=== PATIENT | male | born 1950 | race Hispanic/Latino ===

== ENCOUNTER 2017-02-09 15:11 | Inpatient (IN) | payer MEDICARE ==
[2017-02-09 15:27] VITALS: BMI 36.1
--- NOTE | 2017-02-09 15:50 | ED PDOC ---
Arrival/HPI - General Chief Complaint: Medical Clearance Time Seen by Provider: 02/09/17 15:28 Historian: Patient - History of Present Illness Narrative History of Present Illness (Text): 02/09/17 15:49 66-year-old male with a history of diabetes and hypercholesterolemia presents today sent in by Dr. Chaudhary for evaluation. Patient states she had a syncopal episode last night and today he still isn't feeling right. Patient states he's been feeling very shaky and has been sweating a lot. Patient states he also has a cold that he is getting over. Patient states he's had nasal congestion and sore throat and a cough for the past week or so. Patient states he's been feeling more fatigued lately. He denies chest pain or shortness of breath. Denies abdominal pain. No nausea or vomiting. No other complaints Time/Duration: Other (last night) Symptom Onset: Sudden Symptom Course: Unchanged Quality: Other (no pain) Past Medical History - Provider Review Nursing Documentation Reviewed: Yes - Travel History Have you recently traveled outside [place] w/in the past 3 mons?: No - Tetanus Immunization Tetanus Immunization: Unknown - Pulmonary Hx Respiratory Disorders: Yes (sleep apnea) - Endocrine/Metabolic Hx Diabetes Mellitus Type 2: Yes - Hematological/Oncological Hx Blood Transfusions: No Hx Blood Transfusion Reaction: No - Integumentary Hx Dermatological Disorder: No - Musculoskeletal/Rheumatological Hx Arthritis: Yes Hx Herniated Disk: Yes - Gastrointestinal Hx Gastrointestinal Disorders: Yes (cholecystitis with cholecystectomy) - Genitourinary/Gynecological Hx Genitourinary Disorders: No Hx Reproductive Disorders: No - Psychiatric Hx Emotional Abuse: No Hx Physical Abuse: No Hx Substance Use: No - Anesthesia Hx Anesthesia Reactions: No Hx Malignant Hyperthermia: No - Suicidal Assessment Feels Threatened In Home Enviroment: No Family/Social History - Physician Review Nursing Documentation Reviewed: Yes Family/Social History: Unknown Family HX Smoking Status: Former Smoker Hx Alcohol Use: (was a heavy drinker stoped 3 years ago) Hx Substance Use: No Hx Substance Use Treatment: No Allergies/Home Meds Allergies/Adverse Reactions: Allergies No Known Allergies Allergy (Verified 02/09/17 15:27) Home Medications: Home Meds Medication Instructions Recorded Confirmed Glimepiride [Amaryl] 0 mg 02/09/17 metFORMIN [glucOPHAGE] 500 mg PO BID 02/09/17 Review of Systems - Review of Systems Constitutional: Fatigue. absent: Fevers Eyes: absent: Vision Changes, Photophobia, Eye Pain ENT: Sore Throat, Sinus Congestion Respiratory: Cough. absent: SOB, Wheezing Cardiovascular: Syncope. absent: Chest Pain, Palpitations Gastrointestinal: absent: Abdominal Pain, Constipation, Diarrhea, Nausea, Vomiting Genitourinary Male: absent: Dysuria Musculoskeletal: absent: Arthralgias, Back Pain, Neck Pain Skin: absent: Rash, Pruritis Neurological: Dizziness. absent: Headache Psychiatric: absent: Anxiety, Depression Physical Exam Vital Signs Reviewed: Yes Vital Signs Temp Pulse Resp BP Pulse Ox 02/09/17 19:08 69 18 143/68 97 02/09/17 17:33 75 18 145/65 97 02/09/17 16:58 79 18 148/69 97 02/09/17 15:31 98.6 F 87 18 152/74 H 97 02/09/17 15:27 98.6 F 87 18 152/74 H 97 Temperature: Afebrile Blood Pressure: Hypertensive Pulse: Regular Respiratory Rate: Normal Appearance: Positive for: Well-Appearing, Non-Toxic, Comfortable Pain Distress: None Mental Status: Positive for: Alert and Oriented X 3 - Systems Exam Head: Present: Atraumatic Pupils: Present: PERRL Extroacular Muscles: Present: EOMI Conjunctiva: Present: Normal Ears: Present: Normal, NORMAL TM Mouth: Present: Moist Mucous Membranes Neck: Present: Normal Range of Motion, Trachea Midline. No: Meningeal Signs Respiratory/Chest: Present: Clear to Auscultation, Good Air Exchange. No: Respiratory Distress, Accessory Muscle Use Cardiovascular: Present: Regular Rate and Rhythm Abdomen: No: Tenderness, Rebound, Guarding Back: Present: Normal Inspection Upper Extremity: Present: Normal ROM Lower Extremity: Present: Other (walks with walker) Neurological: Present: GCS=15, Speech Normal Skin: Present: Warm, Dry, Normal Color. No: Rashes Psychiatric: Present: Alert, Oriented x 3 Medical Decision Making ED Course and Treatment: 02/09/17 15:52 66yr old male with syncopal episode last night. Normal saline 500 mL IV bolus cbc platelets:98 cmp: glucose; 179 trop: 0.02 CPK 2910 ekg normal sinus rhythm at 73 bpm normal axis normal intervals no ST elevation Normal saline started at 200 mL per hour cxr No infiltrate effusion or cardiomegaly ct head;FINDINGS: HEMORRHAGE: No intracranial hemorrhage. BRAIN: No mass effect or edema. Mild atrophy is noted. There are moderate white matter changes noted suggestive but nonspecific for chronic microvascular ischemic disease. VENTRICLES: Unremarkable. No hydrocephalus. CALVARIUM: Unremarkable. PARANASAL SINUSES: Moderate mucosal thickening and partial opacification of the maxillary and ethmoid sinuses noted suggestive of sinusitis. MASTOID AIR CELLS: Unremarkable as visualized. No inflammatory changes. OTHER FINDINGS: None. IMPRESSION: No evidence of acute intracranial hemorrhage territorial infarct mass effect or midline shift. Mild atrophy and moderate chronic microvascular white matter ischemic disease. Moderate sinuses mucosal disease. 02/09/17 19:49 Case discussed in depth with Dr. Chaudhary. Will admit the patient observational status for syncope and rhabdomyolysis. With neuro and cardiology consult impression; syncope, rhabdomyolysis tele observation; dr. chaudhary. 02/09/17 22:21 - Lab Interpretations Lab Results: 02/09/17 16:42 02/09/17 16:42 Lab Results 02/09/17 17:00: Urine Color Yellow, Urine Appearance Clear, Urine pH 6.0, Ur Specific [place] 1.025, Urine Protein Trace H, Urine Glucose (UA) Negative, Urine Ketones Trace H, Urine Blood Negative, Urine Nitrate Negative, Urine Bilirubin Negative, Urine Urobilinogen 1.0 H, Ur Leukocyte Esterase Negative, Urine RBC Negative, Urine WBC 0 - 2, Ur Epithelial Cells 0 - 2, Urine Bacteria Large 02/09/17 16:42: WBC 5.9, RBC 4.14, Hgb 14.1, Hct 39.0 L, MCV 94.2, MCH 34.1, MCHC 36.2, RDW 13.6, Plt Count 98 L, MPV 11.0, Gran % 49.3 L, Lymph % (Auto) 28.7, George % (Auto) 13.8 H, Eos % (Auto) 7.7 H, Baso % (Auto) 0.5, Gran # 2.90, Lymph # 1.7, George # 0.8 H, Eos # 0.5, Baso # 0.03 02/09/17 16:42: Sodium 138, Potassium 4.3, Chloride 106, Carbon Dioxide 23, Anion Gap 13, BUN 14, Creatinine 0.8, Est GFR ( Amer) > 60, Est GFR (Non- Af Amer) > 60, Random Glucose 179 H, Calcium 10.1, Total Bilirubin 1.6 H, AST 124 H, ALT 53, Alkaline Phosphatase 97, Lactate Dehydrogenase 581, Total Creatine Kinase 2918 H, CK-MB (CK-2) 3.2, CK-MB (CK-2) % Cancelled, Troponin I 0.02, Total Protein 6.4, Albumin 3.5, Globulin 2.9, Albumin/Globulin Ratio 1.2 - RAD Interpretation Radiology Orders: 02/09/17 15:45 HEAD W/O CONTRAST [CT] Stat CHEST ONE VIEW [RAD] Stat - Medication Orders Current Medication Orders: Famotidine (Pepcid) 40 mg PO HS ZOHRA Sodium Chloride (Sodium Chloride 0.9%) 1,000 mls @ 200 mls/hr IV .Q5H [facility] Last Admin: 02/09/17 21:15 Dose: 200 mls/hr Insulin Human Regular (Humulin R Low) 0 units SC ACHS ZOHRA PRN Reason: Protocol Metformin HCl (Glucophage) 500 mg PO BID ZOHRA Non-Formulary Medication (Glimepiride [Amaryl]) 4 mg PO DAILY ZOHRA Discontinued Medications Sodium Chloride (Sodium Chloride 0.9%) 500 mls @ 999 mls/hr IV .Q31M STA Stop: 02/09/17 18:50 Last Admin: 02/09/17 18:37 Dose: 999 mls/hr Disposition/Present on Arrival - Present on Arrival Any Indicators Present on Arrival: No History of DVT/PE: No History of Uncontrolled Diabetes: No Urinary Catheter: No History of Decub. Ulcer: No History Surgical Site Infection Following: None - Disposition Have Diagnosis and Disposition been Completed?: Yes Diagnosis: Rhabdomyolysis, Syncope Disposition: HOSPITALIZED Disposition Time: 19:00 Patient Plan: Observation Patient Problems: Current Active Problems Problem Status Onset Rhabdomyolysis Acute Syncope Acute Condition: FAIR
--- NOTE | 2017-02-09 16:40 | CT ---
PROCEDURE: CT HEAD WITHOUT CONTRAST. HISTORY: dizziness/syncope COMPARISON: None available. TECHNIQUE: Axial computed tomography images were obtained through the head/brain without intravenous contrast. Radiation dose: Total exam DLP = 822.62 mGy-cm. This CT exam was performed using one or more of the following dose reduction techniques: Automated exposure control, adjustment of the mA and/or kV according to patient size, and/or use of iterative reconstruction technique. FINDINGS: HEMORRHAGE: No intracranial hemorrhage. BRAIN: No mass effect or edema. Mild atrophy is noted. There are moderate white matter changes noted suggestive but nonspecific for chronic microvascular ischemic disease. VENTRICLES: Unremarkable. No hydrocephalus. CALVARIUM: Unremarkable. PARANASAL SINUSES: Moderate mucosal thickening and partial opacification of the maxillary and ethmoid sinuses noted suggestive of sinusitis. MASTOID AIR CELLS: Unremarkable as visualized. No inflammatory changes. OTHER FINDINGS: None. IMPRESSION: No evidence of acute intracranial hemorrhage territorial infarct mass effect or midline shift. Mild atrophy and moderate chronic microvascular white matter ischemic disease. Moderate sinuses mucosal disease.
[2017-02-09 17:08] LABS: ADD MANUAL DIFF? NO
[2017-02-09 17:13] LABS: BASO # 0.03 K/mm3 (0.0-2.0); BASO % 0.5 % (0.0-3.0); EOS # 0.5 (0.0-0.7); EOS % 7.7 % (1.5-5.0); GRAN % 49.3 % (50.0-68.0); LYMPH # 1.7 (1.2-3.4); LYMPH % 28.7 % (22.0-35.0); MEAN CELL VOLUME 94.2 fL (80.0-105.0); MEAN CORPUSCULAR HEMOGLOBIN 34.1 pg (25.0-35.0); MEAN CORPUSCULAR HGB CONC 36.2 g/dl (31.0-37.0); MONO # 0.8 (0.1-0.6); MONO % 13.8 % (1.0-6.0); PLATELET COUNT 98 10^3/uL (120.0-450.0); RED CELL DISTRIBUTION WIDTH 13.6 % (11.5-14.5); WHITE BLOOD COUNT 5.9 10^3/ul (4.5-11.0)
[2017-02-09 17:23] LABS: ALB/GLOB RATIO 1.2 (1.1-1.8); ALKALINE PHOSPHATASE 97 U/L (38-133); ALT/SGPT 53 U/L (7-56); AST/SGOT 124 U/L (15-59); BILIRUBIN,TOTAL 1.6 mg/dL (0.2-1.3); BLOOD UREA NITROGEN 14 mg/dL (7-21); CALCIUM 10.1 mg/dL (8.4-10.5); CARBON DIOXIDE 23 mmol/L (21-33); GFR AFRICAN-AMERICAN > 60; GLUCOSE,RANDOM 179 mg/dL (70-110); POTASSIUM 4.3 mmol/L (3.6-5.0); TOTAL PROTEIN 6.4 g/dL (5.8-8.3)
[2017-02-09 17:26] LABS: CHLORIDE 106 mmol/L (98-107); SODIUM 138 mmol/L (132-148)
[2017-02-09 17:26] LABS: URINE BILIRUBIN NEGATIVE (NEGATIVE); URINE BLOOD NEGATIVE (NEGATIVE); URINE GLUCOSE (UA) NEGATIVE (NEGATIVE); URINE KETONE TRACE mg/dL (NEGATIVE); URINE LEUKOCYTE ESTERASE NEGATIVE Leu/uL (NEGATIVE); URINE PROTEIN TRACE mg/dL (<30 mg/dL)
[2017-02-09 17:31] LABS: URINE APPEARANCE CLEAR (CLEAR); URINE COLOR YELLOW (YELLOW)
[2017-02-09 17:34] LABS: TROPONIN I 0.02 ng/mL
[2017-02-09 18:11] LABS: URINE BACTERIA LARGE (NEG); URINE EPITHELIAL CELLS 0 - 2 /hpf (0-5); URINE RBC NEGATIVE /hpf (0-2); URINE WBC 0 - 2 /hpf (0-6)
[2017-02-09] MEDS ORDERED: Sodium Chloride 0.9% 500 ML IV STA (18:20)
[2017-02-09] MEDS: Sodium Chloride 0.9% 1,000 ML IV SCH (21:15)
[2017-02-10] MEDS: Sodium Chloride 0.9% 1,000 ML IV SCH ×5 (03:21→23:18)
[2017-02-10 07:47] LABS: BLOOD UREA NITROGEN 11 mg/dL (7-21); CALCIUM 8.8 mg/dL (8.4-10.5); CARBON DIOXIDE 23 mmol/L (21-33); CHLORIDE 111 mmol/L (98-107); CHOLESTEROL 133 mg/dL (130-200); GFR AFRICAN-AMERICAN > 60; GLUCOSE,RANDOM 130 mg/dL (70-110); POTASSIUM 4.2 mmol/L (3.6-5.0); SODIUM 141 mmol/L (132-148)
--- NOTE | 2017-02-10 08:23 | RAD ---
PROCEDURE: CHEST RADIOGRAPH, 1 VIEW HISTORY: dizziness/syncope COMPARISON: None available. FINDINGS: LUNGS: The lungs are well inflated and clear. PLEURA: No pneumothorax or pleural fluid seen. CARDIOVASCULAR: Normal. OSSEOUS STRUCTURES: No significant abnormalities. VISUALIZED UPPER ABDOMEN: Normal. OTHER FINDINGS: None. IMPRESSION: No active pulmonary disease.
[2017-02-10] MEDS: Insulin Reg-LOW-Coverage SC SCH ×4 (11:30→22:04)
--- NOTE | 2017-02-10 15:49 | CARD ---
APPROVED REPORT EXAM: Two-dimensional and M-mode echocardiogram with Doppler and color Doppler. INDICATION Syncope 2D DIMENSIONS Left Atrium (2D)3.8 (1.6-4.0cm)IVSd1.6 (0.7-1.1cm) LVDd5.1 (3.9-5.9cm)PWd1.5 (0.7-1.1cm) LVDs3.6 (2.5-4.0cm)FS (%) 29.5 % LVEF (%)56.0 (>50%) M-Mode DIMENSIONS Aortic Root3.70 (2.2-3.7cm)Aortic Cusp Exc.2.10 (1.5-2.0cm) Aortic Valve AoV Peak Bddthbys656.0cm/Alex Peak GR.15mmHg Mitral Valve MV E Ytcpeywr26.8cm/sMV A Xvyshiwq432.0cm/sE/A ratio0.8 TDI E/Lateral E'0.0E/Medial E'0.0 Tricuspid Valve TR Peak [id number]/sRAP [id number] Peak Gr.23mmHg [id number] LEFT VENTRICLE The left ventricle is normal size. There is moderate concentric left ventricular hypertrophy. The left ventricular function is normal. The left ventricular ejection fraction is within the normal range. There is normal LV segmental wall motion. Transmitral Doppler flow pattern is Grade I-abnormal relaxation pattern. RIGHT VENTRICLE The right ventricle is normal size. There is normal right ventricular wall thickness. The right ventricular systolic function is normal. ATRIA The left atrium size is normal. The right atrium size is normal. AORTIC VALVE The aortic valve is thickened but opens well. There is trace aortic regurgitation. MITRAL VALVE The mitral valve is mildly thickened. Mitral regurgitation is mild. TRICUSPID VALVE The tricuspid valve is normal in structure. GREAT VESSELS The aortic root is normal in size. The IVC is normal in size and collapses >50% with inspiration. PERICARDIAL EFFUSION There is no pericardial effusion. <Conclusion> The left ventricle is normal size. There is moderate concentric left ventricular hypertrophy. The left ventricular function is normal. The left ventricular ejection fraction is within the normal range. There is normal LV segmental wall motion. Transmitral Doppler flow pattern is Grade I-abnormal relaxation pattern. Mitral regurgitation is mild.
--- NOTE | 2017-02-10 17:24 | US ---
PROCEDURE: Bilateral carotid artery duplex ultrasound HISTORY: Carotid stenosis syncope PHYSICIAN(S): Navjot Aguiar MD. TECHNIQUE: Duplex sonography and color-flow Doppler were used to evaluate the carotid bifurcations and limited segments of the vertebral arteries bilaterally. The study is limited by body habitus. FINDINGS: There is mild smooth heterogeneous plaque noted at the carotid bifurcations bilaterally. The peak systolic velocity in the proximal right internal carotid artery is 65 cm/sec. This corresponds to a 20 to 39% proximal right ICA stenosis. Normal systolic velocities are noted in the proximal right external carotid artery. There is antegrade flow in the right vertebral artery. The peak systolic velocity in the proximal left internal carotid artery is 74 cm/sec. This corresponds to a 20 to 39% proximal left ICA stenosis. Normal systolic velocities are noted in the proximal left external carotid artery. There is antegrade flow in the left vertebral artery. IMPRESSION: 1. Bilateral 20-39% proximal ICA stenoses. 2. Antegrade flow in both vertebral arteries.
--- NOTE | 2017-02-10 17:42 | CON ---
DATE: 02/10/2017 CHIEF COMPLAINT: Syncope. HISTORY OF PRESENT ILLNESS: This is a 66-year-old man with history of type 2 diabetes mellitus, hype rcholesterolemia, who was sent by his primary care doctor because he had a syncopal episode and state d he was feeling very shaky ____ diaphoretic and is recently getting over a cold and nasal congestion . His CT head showed no acute intracranial abnormality. He is on diabetic medications. He has hist ory of obstructive sleep apnea. His A1c was 6.4. He underwent a carotid Doppler, his results are pe nding. Currently, he is sitting up in the chair in no acute distress, moving all extremities equally . No pronator drift seen. He has mild diabetic neuropathy changes on examination. Otherwise, no he adaches, no change in sense of vision, taste or smell at this time. He is feeling much better than juancarlos thayer. He had a low blood pressure of 104/46 today, which was low. PAST MEDICAL HISTORY: Diabetes, hypercholesterolemia, obstructive sleep apnea. REVIEW OF SYSTEMS: A 14-point review of systems negative except for the HPI. PAST SURGICAL HISTORY: History of cholecystitis and cholecystectomy. FAMILY HISTORY: Noncontributory. SOCIAL HISTORY: Was a heavy drinker, stopped 3 years ago. Former smoker. No illicit drug use at th is time. ALLERGIES: No known drug allergies. PHYSICAL EXAMINATION: VITAL SIGNS: Temperature of 98, pulse rate of 62, blood pressure 104/46, respiratory rate 19, oxygen saturation 96% via room air. GENERAL: The patient is sitting up in bed in no acute distress. HEENT: Atraumatic, normocephalic. PERRLA. Extraocular muscles intact. NECK: Supple, no JVD, no adenopathy noted. LUNGS: Clear to auscultation. No adventitious sounds. HEART: S1, S2, normal rate and rhythm. No murmurs, rubs, or gallops. ABDOMEN: Soft, nontender, nondistended. Bowel sounds are present. EXTREMITIES: No clubbing, no cyanosis. Peripheral pulses 2+ felt bilaterally. NEUROLOGIC: The patient is alert, orientated to person, place, month and year. Speech is fluent wit hout any errors. Cranial nerves II-XII intact. MOTOR EXAM: Moves all extremities equally. Toes are downgoing bilaterally. SENSORY: Decreased light touch and pinprick up to the calves bilaterally. Decreased vibration of th e toes. DTRs are 2+ throughout and 1 at the ankles. COORDINATION: Kplmzv-ow-seup intact. Gait is deferred for now. LABORATORIES: Sodium is 141, potassium 4.2, chloride of 111, carbon dioxide 23, BUN of 11, creatinin e 0.7. Random glucose of 130. A1c is 6.4. ASSESSMENT AND PLAN: This is a 66-year-old man with history of hypertension, dyslipidemia, diabetes, obstructive sleep apnea, had a syncopal episode at home and felt generally weak after. His syncopal episode is unlikely a seizure disorder. Seems like he must have had a transient vasovagal event and possible transient cerebral hypoperfusion since he is getting off a generalized cold. At this time, he is clinically stable. I instructed that: 1. He may need a sleep study as an outpatient and need to be on continuous positive airway pressure for his obstructive sleep apnea. 2. Get better control of his blood sugars. Keep his blood sugars between 140 to 180 and continue wi th his metformin and Amaryl. 3. He would benefit to be on an aspirin of 81 mg p.o. daily. 4. Carotid Doppler and if carotid Doppler is negative, followup with the baseball inspector and repairer and primary c are team. At this time, he is clinically stable from my standpoint. Will not need any further neuro testing at this time. Please reconsult if there is a change in his status. Kamaljit Espinosa MD cc: [id number] TT: 02/10/2017 17:42:14 Confirmation # [id number] Dictation # [id number]
--- NOTE | 2017-02-10 18:15 | CON ---
DATE: 02/10/2017 REASON FOR CARDIOLOGY CONSULTATION: Syncope. HISTORY OF PRESENT ILLNESS: The patient is a 66-year-old male who has a history of hypertension, roscoe betes mellitus and hyperlipidemia, presented because of a fainting spell while at home in the bedroom in a partially carpeted area. The patient did feel dizzy and fell on his left elbow. The patient a s he tried to stand up and go to the bed, he felt short of breath with diaphoresis as well as palpita tions. The patient is unaware of any history of heart attack or stroke in the past. The patient renard es by himself and event was not witnessed. SOCIAL HISTORY: The patient is a former smoker, former ETOH abuser who quit many years ago. MEDICATIONS: Amaryl 4 mg p.o. once a day, metformin 500 mg twice a day, Pepcid 40 mg p.o. at bedtime , normal saline at 200 mL an hour. REVIEW OF SYSTEMS: No nausea or vomiting. No recent diarrhea. No fever or chills and no retrostern al chest pain. The patient does report left elbow pain. PHYSICAL EXAMINATION: GENERAL: The patient is an elderly male who does not appear to be in any distress. VITAL SIGNS: Blood pressure 160/86, heart rate 72, temperature 98.5, respirations 20. HEENT: Normocephalic. NECK: No JVD. CHEST: Minimal rhonchi. HEART: S1, S2 regular. ABDOMEN: Soft. EXTREMITIES: Left elbow bruising, no edema. LABORATORY DATA: CBC: WBC 5.9, hemoglobin and hematocrit 4.1 and 39 respectively, platelet count is 98,000. SMA-7: Sodium 141, potassium 4.2, chloride 111, CO2 23, glucose 130, BUN 11, creatinine 0. 7. One set of troponin 0.02. TSH level is within normal limits. Head CT scan without contrast: No acute findings, mild atrophy and moderate chronic microvascular white matter ischemic changes, moder ate sinus mucosal disease. Chest x-ray revealed cardiomegaly with prominent bronchovascular markings . EKG revealed normal sinus rhythm. Echocardiographic study performed in 12/2014 revealed normal ej ection fraction and grade 1 abnormal relaxation pattern. ASSESSMENT: 1. Syncopal episode associated with palpitation, diaphoresis. 2. Uncontrolled diabetes mellitus. 3. Hypertension. 4. Thrombocytopenia. RECOMMENDATIONS: Continue current Amaryl, metformin and normal saline infusion. Start aspirin 81 mg once a day. Obtain an echocardiogram and carotid Doppler. The most recent carotid Doppler from 2014 revealed bilateral 20%-39% proximal internal carotid artery stenosis. Mason Raphael MD cc: [id number] TT: 02/10/2017 18:14:25 Confirmation # [id number] Dictation # [id number] jn
[2017-02-10] MEDS: Albuterol-Ipratrop 3 mg / 0.5 (3 ml) UD IH SCH (19:29)
--- NOTE | 2017-02-10 21:01 | CON ---
DATE: 02/10/2017 REFERRING PHYSICIAN: Dr. Chaudhary. REASON FOR CONSULT: Recurrent syncopal episodes, sleep apnea syndrome, noncompliant with the CPAP, c hronic obstructive lung disease. HISTORY OF PRESENT ILLNESS: This is a 66-year-old gentleman with past medical history significant fo r morbid obesity, chronic obstructive lung disease, obstructive sleep apnea syndrome, diabetes, hyper tension, noncompliant with the CPAP. Has any recurrent syncopal type episode, also had a rhinitis, c ough or sore throat. No chest pain, no nausea, no vomiting, no diarrhea. Has some leg swelling. PAST MEDICAL HISTORY: Obesity, sleep apnea syndrome, chronic lung disease, diabetes, history of alco hol abuse in the remote past. FAMILY HISTORY: No significant cardiopulmonary disease reported. ALLERGIES: None known. MEDICATIONS: He is on Amaryl 4 mg daily, Glucophage 500 mg twice a day, insulin coverage, Pepcid 40 mg daily, IV fluid normal saline 200 mL per hour was given. PHYSICAL EXAMINATION: HEENT: Moist mucous membrane. Crowded airway. Mallampati score is 4. NECK: Supple. No JVD. LUNGS: Expiratory wheezing and rhonchi. HEART: S1 and S2. ABDOMEN: Soft, nontender. No organomegaly. EXTREMITIES: There is not much edema. NEUROLOGIC: Awake, alert, follows simple commands. LABORATORY DATA: Shows hemoglobin 14.1, hematocrit 39.0, WBC 5.9, platelet is 98. Sodium 141, potas sium 4.2, chloride 111, bicarbonate 23, BUN 11, creatinine 0.7, glucose 130, calcium 8.8, cholesterol 133. TSH 2.97. Urinalysis shows WBCs 0-2. On admission, had a chest x-ray done, which shows no ac tive pulmonary disease reported. Also had a CAT scan of the head done on admission, which was unrema rkable for any changes, mild atrophy and moderate chronic microvascular white matter ischemic disease s, ____ mucosal thickening. Had echocardiogram done which shows right ventricle systolic pressure is 33, LV has a moderate concentric hypertrophy. IMPRESSION AND PLAN: Chronic obstructive lung disease, sleep apnea syndrome, cardiac diastolic dysfu nction, morbid obesity, diabetes, hypertension, thrombocytopenia, recurrent syncopal episode. I agre e with the present management. We will add IV and inhaled bronchodilator, add CPAP 7 cm while sleepi ng. Gastric prophylaxis. DVT prophylaxis. Being followed by cardiology as well last neurology. Fa ll precaution. Thank you and will follow with you. Antonietta Acevedo MD cc: [id number] TT: 02/10/2017 21:00:53 Confirmation # [id number] Dictation # [id number] jn
[2017-02-10] MEDS: MethylPREDNISolone 40 mg Vial IVP SCH (21:21)
--- NOTE | 2017-02-10 23:26 | CARD ---
APPROVED REPORT EKG Measurement Heart [id number] <Conclusion> Normal sinus rhythm Normal ECG
[2017-02-11] MEDS: Albuterol-Ipratrop 3 mg / 0.5 (3 ml) UD IH SCH ×2 (01:06→07:53)
[2017-02-11 01:10] VITALS: O2SAT 98
[2017-02-11] MEDS: Sodium Chloride 0.9% 1,000 ML IV SCH ×2 (05:42→09:10)
[2017-02-11 07:08] LABS: MEAN CELL VOLUME 93.4 fL (80.0-105.0); MEAN CORPUSCULAR HEMOGLOBIN 33.4 pg (25.0-35.0); MEAN CORPUSCULAR HGB CONC 35.8 g/dl (31.0-37.0); MEAN PLATELET VOLUME 10.6 fl (7.0-11.0); RED CELL DISTRIBUTION WIDTH 13.6 % (11.5-14.5); WHITE BLOOD COUNT 4.4 10^3/ul (4.5-11.0)
[2017-02-11 07:19] LABS: ALB/GLOB RATIO 1.1 (1.1-1.8); ALKALINE PHOSPHATASE 101 U/L (38-133); ALT/SGPT 54 U/L (7-56); AST/SGOT 128 U/L (15-59); BILIRUBIN,TOTAL 1.6 mg/dL (0.2-1.3); BLOOD UREA NITROGEN 13 mg/dL (7-21); CALCIUM 8.6 mg/dL (8.4-10.5); CARBON DIOXIDE 18 mmol/L (21-33); CHLORIDE 110 mmol/L (98-107); GFR AFRICAN-AMERICAN > 60; GLUCOSE,RANDOM 237 mg/dL (70-110); POTASSIUM 4.5 mmol/L (3.6-5.0); SODIUM 138 mmol/L (132-148); TOTAL PROTEIN 6.3 g/dL (5.8-8.3)
[2017-02-11] MEDS: Insulin Reg-LOW-Coverage SC SCH ×2 (07:54→13:13)
[2017-02-11] MEDS: MethylPREDNISolone 40 mg Vial IVP SCH (09:15)
--- NOTE | 2017-02-11 09:26 | HP ---
CONTINUATION LABORATORY DATA: White blood cells 5.9, hemoglobin 14.1, hematocrit 39.0, platelets 98. Sodium 141, potassium 4.2, BUN 11, creatinine 0.7, glucose 151. ASSESSMENT AND PLAN: The patient is a 66-year-old male with uncontrolled diabetes mellitus, non-insulin requiring; proteinuria, ketonuria, came with syncopal attack, seen by Dr. Acevedo, has history of obesity, sleep apnea syndrome, chronic lung disease, history of alcohol abuse in the remote past, has cirrhosis of the liver, cardiac diastolic dysfunction, morbid obesity, hypertension, thrombocytopenia, history of recurrent syncopal attack. Dr. Acevedo added inhaled bronchodilators. Gastric prophylaxis, DVT prophylaxis. I reviewed Dr. Acevedo's notes. I reviewed Dr. Kamaljit Espinosa's notes also. Elbow x-ray is done; results are pending. According to neurologist, the patient's syncopal disorder does not look like seizure disorder; seems likely he must have transient vasovagal, even at times possibly transient cerebral hypoperfusion since he is getting and generalized cold. The patient may need sleep study as outpatient. To continue having positive airway pressure for his obstructive sleep apnea. Try to control blood sugar. Dr. Espinosa added aspirin. Carotid Doppler is negative. According to Dr. Espinosa, no further neurological testing. Seen by autographer/Dr. Mason Raphael also. History of palpitation, diaphoresis. Continue Amaryl, metformin, and normal saline infusion as per autographer. Obtain echocardiography. Carotid Doppler of the neck revealed bilateral 20-39% proximal internal carotid artery stenosis. Out of bed, physical therapy. GI and DVT prophylaxis. Will follow up. Tesha Chaudhary MD cc: [id number] TT: 02/11/2017 09:25:51 aubree PADILLA
[2017-02-11] MEDS ORDERED: Sodium Chloride 0.9% 1,000 ML IV SCH (09:30)
[2017-02-11] MEDS ORDERED: Enoxaparin 40 mg Syringe SC SCH (10:00)
--- NOTE | 2017-02-11 10:34 | RAD ---
PROCEDURE: Radiographs of the left elbow. HISTORY: fall COMPARISON: No prior. FINDINGS: BONES: Normal. No fracture. JOINTS: Normal. No osteoarthritis. SOFT TISSUES: Normal. JOINT EFFUSION: None. OTHER FINDINGS: None IMPRESSION: Unremarkable radiographs of the left elbow.
--- NOTE | 2017-02-11 11:06 | PN ---
DATE: 02/11/2017 REASON FOR CONSULTATION: Cardiac evaluation, possible syncope. BRIEF CLINICAL HISTORY: A 66-year-old male with history of hypertension, diabetes mellitus, hyperten faisal, hyperlipidemia, feels as if he is going to pass out while in the bedroom and felt dizzy spell, admitted here. Denies any chest pain, denies any shortness of breath, denies any palpitation. PHYSICAL EXAMINATION: VITAL SIGNS: Temperature afebrile, heart rate 64, blood pressure 114/57. HEENT: PERRLA. Extraocular muscles intact. NECK: Supple. No carotid bruits. No thyromegaly. CHEST: Clear to auscultation. HEART: S1, S2 regular. ABDOMEN: Soft. EXTREMITIES: Clubbing and cyanosis negative. LABORATORY DATA: Blood workup as follows: WBC 4.4, hemoglobin ____, hematocrit 38.0, platelet count 91. Chemistry shows sodium 130, potassium 4.5, chloride 110, carbon dioxide 18, anion gap of 15, BU N 13, creatinine 0.7. IMPRESSION: Uncontrolled diabetes, rule out orthostatic hypotension, diabetes, hypertension, hyperli pidemia, obesity, history of thrombocytopenia, history of cirrhosis of liver. Recent cardiac workup as follows: The patient had a carotid duplex study 02/10/2017 that shows bilateral 20%-39% stenosis. Echo yesterday done that showed normal LV function, normal segmental wall motion ____, mild mitral regurgitation, normal tricuspid valve, trace aortic regurgitation, uncontrolled hypertension, uncontr olled diabetes, hypertension, thrombocytopenia, cirrhosis, mild bilateral carotid duplex and mild car otid artery disease. Echo essentially normal. RECOMMENDATION: ____ orthostatic hypotension, discontinue telemetry. Because of risk factor, sugges t a stress test as outpatient. We will discontinue telemetry. We will schedule a stress test in 1-2 weeks as outpatient. Antonietta Cowan MD cc: [id number] TT: 02/11/2017 11:05:56 Confirmation # [id number] Dictation # [id number]
[2017-02-11 12:29] VITALS: BP 120/66; PULSE 67; RESP 16; TEMP 98.2
--- NOTE | 2017-02-11 12:53 | HP ---
CHIEF COMPLAINT: History of syncopal attack or fall. HISTORY OF PRESENT ILLNESS: The patient is a 66-year-old male with history of diabetes mellitus, hyp ercholesterolemia, came in my office. Last night, he had syncopal attack at home and he was on the f eliu almost 1 hour. The patient says he has been feeling very shaky. After that, he checked his sug ar. After that, it was around 150; was sweating a lot and he was feeling very cold. Nasal congestio n, sore throat, cough for the past week or so, fatigue and tired. Denies chest pain. No shortness o f breath. No hematuria or hematochezia, no fever, no chills. No swelling of the leg. PAST MEDICAL HISTORY: Diabetes mellitus type 2, herniated disk, cholecystitis with cholecystectomy. FAMILY HISTORY: Father and mother noncontributory. HABITS: No smoking, no drugs, no ethanol. Has history of heavy smoking, but stopped 3 years ago. ALLERGIES: The patient is not allergic with any medication. HOME MEDICATIONS: Glimepiride, metformin. REVIEW OF SYSTEMS: The patient seen and examined on the bedside in the telemetry. Still feeling li etime coughing with shortness of breath. No fever, no chills, no blurring of vision. No photophobia or eye pain. Feeling sore throat, sinus congestion. No wheezing. Has a syncopal attack and palpit ation. No abdominal pain. No nausea, vomiting, or diarrhea. No back pain, neck pain. No pruritus. PHYSICAL EXAMINATION: VITAL SIGNS: Temperature 98.6, pulse 57, respiratory rate 18, blood pressure 150/74. HEENT: Head normocephalic, atraumatic. Eyes: PERRLA. Extraocular muscles are intact. Conjunctiva e clear. Nose patent. Mucous membranes moist. NECK: Supple. No carotid bruit, JVD, or thyromegaly. CHEST: Bilaterally symmetrical. HEART: S1, S2 positive. LUNGS: Clear to auscultation. ABDOMEN: Soft. Bowel sounds present. No organomegaly. EXTREMITIES: No edema, no cyanosis. NEUROLOGIC: The patient is awake, alert, moving all 4 extremities. No focal deficits. LABORATORY DATA: Reviewed by me. Tesha Chaudhary MD cc: [id number] TT: 02/11/2017 09:48:43 tn 02/11/2017 11:52:14
--- NOTE | 2017-02-11 20:21 | PN ---
DATE: 02/11/2017 REFERRING PHYSICIAN: Dr. Chaudhary. SUBJECTIVE: The patient is sitting on side of the bed. Night was much better. Tolerated CPAP for 6 hours. Decreased rhinitis and cough. Decreased shortness of breath. No nausea, no vomiting, no di arrhea. No leg pain or leg swelling. OBJECTIVE: GENERAL: No acute distress. VITAL SIGNS: Temp is 98, heart rate is 67, respiratory rate is still 16, blood pressure 120/66, puls e ox 98% on room air. HEENT: Moist mucous membranes. Crowded airway. Mallampati score is 4. NECK: Supple. No JVD. LUNGS: Have a fair airflow with few rhonchi. HEART: S1, S2. ABDOMEN: Soft, nontender. No organomegaly. EXTREMITIES: edema. NEUROLOGIC: Awake, alert, follows simple commands. MEDICATIONS: He is on Amaryl 4 mg daily, doxycycline 100 mg twice a day, DuoNeb q. 6 hours, Ecotrin 81 mg daily, Glucophage 500 mg twice a day, Lovenox 40 mg daily, Pepcid 40 mg daily, IV fluid normal saline 200 mg per hour was given , Solu-Medrol 40 mg q. 12 hours. LABORATORY DATA: Shows hemoglobin 13.6, hematocrit 38.0, WBC 4.4, platelet count is 91. Sodium 138, potassium 4.5, chloride 110, bicarbonate 18, BUN 13, creatinine 0.7, glucose 237, calcium 8.6, AST 1 28, ALT 54, and alkaline phosphatase is 101, total creatinine kinase 2253, albumin is 3.3. IMPRESSION AND PLAN: Chronic obstructive lung disease, sleep apnea syndrome, cardiac diastolic dysfu nction, moderate obesity, diabetes, hypertension, thrombocytopenia, syncopal episode. I spoke t o the patient in detail, advised him to use continuous positive airway pressure every night while sle eping, p.o. and inhaled bronchodilators, complete doxycycline for 5 days also, outpatient followup [facility] Dr. Chaudhary's office next week for followup blood work, gastric prophylaxis, fall precaution. Seen by cardiology and neurology. Thank you and we will follow. Antonietta Acevedo MD cc: [id number] TT: 02/11/2017 20:20:39 Confirmation # [id number] Dictation # [id number]
== END 2017-02-11 15:51 | disposition home or self-care (01) | DRG 312 ==
LOC: ED 15:11 → ERH 19:48 → 2RSO 21:40 → OBSVTOIN 02-10 16:19
PROVIDERS: ADMIT Internal Medicine; ATTEND Internal Medicine
PROC: 3E0F7GC Introduction of Other Therapeutic Substance into Respiratory Tract, Via Natural or Artificial Opening (ICD-10-PCS; principal; 2017-02-10)
DX: R55 Syncope and collapse (principal); M62.82 Rhabdomyolysis; E11.40 Type 2 diabetes mellitus with diabetic neuropathy, unspecified; E11.65 Type 2 diabetes mellitus with hyperglycemia; E66.01 Morbid (severe) obesity due to excess calories; D69.6 Thrombocytopenia, unspecified; K74.60 Unspecified cirrhosis of liver; I65.23 Occlusion and stenosis of bilateral carotid arteries; J44.9 Chronic obstructive pulmonary disease, unspecified; I10 Essential (primary) hypertension; G47.33 Obstructive sleep apnea (adult) (pediatric); E78.00 Pure hypercholesterolemia, unspecified; E78.5 Hyperlipidemia, unspecified; I34.0 Nonrheumatic mitral (valve) insufficiency; R53.1 Weakness; J31.0 Chronic rhinitis; Z68.36 Body mass index [BMI] 36.0-36.9, adult; Z91.19 Patient's noncompliance with other medical treatment and regimen; Z90.49 Acquired absence of other specified parts of digestive tract; Z87.891 Personal history of nicotine dependence